=== PATIENT | female | born 1945 | race Two or more races ===

== ENCOUNTER 2020-05-12 16:48 | Inpatient (IN) | payer MEDICARE, MEDICAID ==
[~2020-05-12] VITALS: Ht 154.9 cm; Wt 60.4 kg
[2020-05-12] MEDS ORDERED: LORAZEPAM 2MG/ML CPJ IV ONE (17:45)
[2020-05-12 18:07] LABS: HEMATOCRIT. 28.1 % (36.0-48.0); HEMOGLOBIN. 9.6 g/dL (12.0-16.0); MEAN CORPUSCULAR VOLUME 90.6 fL (81.0-99.0); MEAN PLATELET VOLUME 8.7 fl (7.4-10.4); PLATELET 228 x1000/uL (130-400); RED CELL DISTRIBUTION WIDTH 12.3 % (11.6-14.6)
[2020-05-12 18:15] LABS: CLARITY URINE CLEAR (CLEAR); COLOR URINE DARK YELLOW (YELLOW); KETONES URINE NEGATIVE (NEGATIVE); LEUKOCYTE ESTERASE URINE 1+ (NEGATIVE); NITRITE URINE NEGATIVE (NEGATIVE); OCCULT BLOOD URINE NEGATIVE (NEGATIVE); PH URINE 8.5 (4.5-8.0); PROTEIN URINE NEGATIVE (NEGATIVE); SPECIFIC GRAVITY URINE 1.023 (1.005-1.030); UROBILINOGEN URINE 0.2 E.U./dL (0.2-1.0)
[2020-05-12 18:17] LABS: CHLORIDE 104 mEq/L (98-107)
[2020-05-12 18:21] LABS: PLATELET ESTIMATE NORMAL
[2020-05-12 18:23] LABS: ETHANOL BLOOD < 10 mg/dL; LDL CHOLESTEROL 106 mg/dL (5-100)
[2020-05-12 18:45] LABS: *AMPHETAMINES SCREEN URINE NEGATIVE (NEGATIVE); *BARBITURATES SCREEN URINE NEGATIVE (NEGATIVE); *BENZODIAZEPINES SCREEN URINE NEGATIVE (NEGATIVE); *COCAINE SCREEN URINE NEGATIVE (NEGATIVE); METHADONE URINE SCREEN NEGATIVE (NEGATIVE); OPIATES URINE SCREEN NEGATIVE (NEGATIVE); PHENCYCLIDINE URINE SCREEN NEGATIVE (NEGATIVE)
[2020-05-12 18:47] LABS: CANNABINOID URINE SCREEN NEGATIVE (NEGATIVE)
[2020-05-12] MEDS ORDERED: ASPIRIN 325MG EC TABLET PO NR (19:00)
[2020-05-12] MEDS ORDERED: CEFTRIAXONE 1 G PREMIX 50 ML IV ONE (19:15)
[2020-05-12 19:39] LABS: PROTHROMBIN TIME 10.3 sec (9.6-11.0)
[2020-05-12] MEDS ORDERED: GUAIFENESIN 200MG/10ML SUGAR FREE UDC PO PRN (21:45)
[2020-05-12] MEDS ORDERED: CLONIDINE 0.1MG TABLET PO PRN (21:45)
[2020-05-12] MEDS ORDERED: DOCUSATE SODIUM 100MG CAPSULE PO PRN (21:45)
[2020-05-12] MEDS ORDERED: ONDANSETRON HCL 4MG/2ML INJ IV PRN (21:45)
[2020-05-12] MEDS ORDERED: ACETAMINOPHEN 650MG/20.3ML UDC GT PRN (21:45)
[2020-05-12] MEDS ORDERED: MAGNESIUM/ALUMINUM HYDROXIDE/SIMETHICONE 30ML UDC PO PRN (21:45)
[2020-05-12] MEDS ORDERED: LEVOFLOXACIN 500MG PREMIX 100 ML IV SCH (22:00)
[2020-05-12 22:33] VITALS: BP 115/63
[2020-05-12 22:39] VITALS: BP 115/63
[2020-05-12] MEDS ORDERED: IOHEXOL-350 100 ML BOTTLE ONE (23:11)
[2020-05-13] VITALS (42 sets, daily range): BP systolic 70–123; BP diastolic 24–74
[2020-05-13] MEDS: DEXT 5%/0.45% NACL 1000ML 1,000 ML IV SCH ×2 (00:14→09:34)
[2020-05-13] MEDS: ENOXAPARIN 40MG/0.4ML SYR SUBCUT SCH ×2 (00:18→20:12)
[2020-05-13] MEDS: LEVOFLOXACIN 500MG PREMIX 100 ML IV SCH (00:29)
[2020-05-13 07:08] LABS: CHLORIDE 106 mEq/L (98-107)
[2020-05-13 07:29] LABS: BASOPHILS % 0.4 % (0.0-2.0); EOSINOPHILS % 0.7 % (0.0-5.0); HEMATOCRIT. 24.3 % (36.0-48.0); HEMOGLOBIN. 8.4 g/dL (12.0-16.0); LYMPHOCYTES % 22.3 % (20.0-50.0); MEAN CORPUSCULAR HEMOGLOBIN 31.3 pg (28.0-32.0); MEAN CORPUSCULAR VOLUME 90.9 fL (81.0-99.0); MEAN PLATELET VOLUME 8.9 fl (7.4-10.4); MONOCYTES % 5.9 % (2.0-8.0); NEUTROPHILS % 70.7 % (40.0-76.0); PLATELET 199 x1000/uL (130-400); RED BLOOD CELL COUNT 2.67 mill/uL (4.2-5.4); RED CELL DISTRIBUTION WIDTH 12.3 % (11.6-14.6)
[2020-05-13] MEDS ORDERED: SODIUM CHLORIDE 0.9% 1,000 ML IV SCH (07:30)
[2020-05-13] MEDS ORDERED: PNEUMOCOCCAL 23-VAL P-SAC VAC 0.5 ML IM ONE (09:00)
[2020-05-13] MEDS: MIDODRINE HCL 5MG TABLET PO SCH (20:08)
[2020-05-14] VITALS (38 sets, daily range): BP systolic 51–123; BP diastolic 17–82
[2020-05-14] MEDS: DEXT 5%/0.45% NACL 1000ML 1,000 ML IV SCH ×2 (00:38→15:10)
[2020-05-14] MEDS: LEVOFLOXACIN 500MG PREMIX 100 ML IV SCH (04:40)
[2020-05-14 08:44] LABS: BASOPHILS % 0.4 % (0.0-2.0); EOSINOPHILS % 0.1 % (0.0-5.0); LYMPHOCYTES % 12.2 % (20.0-50.0); MEAN CORPUSCULAR HEMOGLOBIN 30.2 pg (28.0-32.0); MEAN CORPUSCULAR VOLUME 91.5 fL (81.0-99.0); MEAN PLATELET VOLUME 8.7 fl (7.4-10.4); MONOCYTES % 2.8 % (2.0-8.0); NEUTROPHILS % 84.5 % (40.0-76.0); PLATELET 174 x1000/uL (130-400); RED BLOOD CELL COUNT 2.04 mill/uL (4.2-5.4); RED CELL DISTRIBUTION WIDTH 12.6 % (11.6-14.6)
[2020-05-14 08:49] LABS: CHLORIDE 110 mEq/L (98-107)
[2020-05-14 08:50] LABS: HEMATOCRIT. 18.7 % (36.0-48.0); HEMOGLOBIN. 6.2 g/dL (12.0-16.0)
[2020-05-14] MEDS: MIDODRINE HCL 5MG TABLET PO SCH ×3 (09:18→18:02)
[2020-05-14] MEDS: PANTOPRAZOLE SODIUM 40 MG/VIAL IV SCH (12:22)
[2020-05-14 13:21] LABS: FERRITIN 76 ng/mL (10-291)
[2020-05-14 14:24] LABS: FOLIC ACID (FOLATE) SERUM > 20.00 ng/mL (>5.38); VITAMIN B12 SERUM 873 pg/mL (211-911)
[2020-05-14 19:09] LABS: HEMATOCRIT 27.9 % (36.0-48.0); HEMOGLOBIN 9.7 g/dL (12.0-16.0)
[2020-05-14 19:19] LABS: PROTHROMBIN TIME 10.9 sec (9.6-11.0)
[2020-05-14] MEDS: IRON SUCROSE COMPLEX 100 MG/5 ML ML IV SCH (22:07)
[2020-05-15] VITALS (15 sets, daily range): BP systolic 93–134; BP diastolic 39–73
[2020-05-15] MEDS: LEVOFLOXACIN 500MG PREMIX 100 ML IV SCH (01:15)
[2020-05-15] MEDS: DEXT 5%/0.45% NACL 1000ML 1,000 ML IV SCH ×2 (06:57→16:25)
[2020-05-15 06:58] LABS: BASOPHILS % 0.4 % (0.0-2.0); EOSINOPHILS % 0.7 % (0.0-5.0); HEMATOCRIT. 27.2 % (36.0-48.0); HEMOGLOBIN. 9.5 g/dL (12.0-16.0); LYMPHOCYTES % 17.8 % (20.0-50.0); MEAN CORPUSCULAR HEMOGLOBIN 30.3 pg (28.0-32.0); MEAN CORPUSCULAR VOLUME 87.1 fL (81.0-99.0); MEAN PLATELET VOLUME 8.9 fl (7.4-10.4); MONOCYTES % 6.1 % (2.0-8.0); PLATELET 149 x1000/uL (130-400); RED BLOOD CELL COUNT 3.13 mill/uL (4.2-5.4); RED CELL DISTRIBUTION WIDTH 14.3 % (11.6-14.6)
[2020-05-15 07:01] LABS: PROTHROMBIN TIME 10.9 sec (9.6-11.0)
[2020-05-15 07:12] LABS: CHLORIDE 110 mEq/L (98-107)
[2020-05-15] MEDS: MIDODRINE HCL 5MG TABLET PO SCH ×3 (09:00→18:00)
[2020-05-15] MEDS: PANTOPRAZOLE SODIUM 40 MG/VIAL IV SCH (09:50)
[2020-05-15] MEDS: FERROUS SULFATE 325MG TABLET PO SCH ×2 (12:20→17:59)
[2020-05-15] MEDS ORDERED: MIDAZOLAM HCL 5 MG/5 ML VIAL IV PRN (15:57)
[2020-05-15] MEDS ORDERED: MIDAZOLAM HCL 5 MG/5 ML VIAL ONE (15:57)
[2020-05-15] MEDS ORDERED: FENTANYL CITRATE/PF 50MCG/ML 2ML VIAL ONE (15:58)
[2020-05-15] MEDS ORDERED: FENTANYL CITRATE/PF 50MCG/ML 2ML VIAL IV PRN (15:58)
[2020-05-15] MEDS: IRON SUCROSE COMPLEX 100 MG/5 ML ML IV SCH (21:29)
[2020-05-15] MEDS ORDERED: LEVOFLOXACIN 250MG PREMIX 50 ML IV SCH (22:00)
[2020-05-16] VITALS (11 sets, daily range): BP systolic 117–144; BP diastolic 32–82
[2020-05-16] MEDS: DEXT 5%/0.45% NACL 1000ML 1,000 ML IV SCH ×2 (02:29→05:45)
[2020-05-16 10:20] LABS: HEMATOCRIT 31.1 % (36.0-48.0); HEMOGLOBIN 10.7 g/dL (12.0-16.0); MEAN CORPUSCULAR HEMOGLOBIN 30.3 pg (28.0-32.0); MEAN CORPUSCULAR VOLUME 88.1 fL (81.0-99.0); PLATELET 190 x1000/uL (130-400); RED BLOOD CELL COUNT 3.53 mill/uL (4.2-5.4); RED CELL DISTRIBUTION WIDTH 14.2 % (11.6-14.6)
[2020-05-16] MEDS: MIDODRINE HCL 5MG TABLET PO SCH ×2 (10:24→12:48)
[2020-05-16] MEDS: PANTOPRAZOLE SODIUM 40 MG/VIAL IV SCH (10:24)
[2020-05-16] MEDS: FERROUS SULFATE 325MG TABLET PO SCH ×2 (10:24→12:48)
[2020-05-16 10:30] LABS: CHLORIDE 111 mEq/L (98-107)
[2020-05-16] MEDS ORDERED: SUCRALFATE 1 G/10 ML UDC PO SCH (13:00)
[2020-05-16] MEDS ORDERED: LEVOFLOXACIN 250MG TABLET PO SCH (19:00)
[2020-05-16] MEDS ORDERED: ATORVASTATIN CALCIUM 10MG TABLET PO SCH (21:00)
== END 2020-05-16 15:50 | disposition home health service (06) | DRG 871 ==
LOC: ER 16:48 → 3WST 19:09 → EDBEDREQ 19:11 → ENRESERV 20:46
PROVIDERS: ADMIT Hospitalist; ATTEND Hospitalist
PROC: 30233N1 Transfusion of Nonautologous Red Blood Cells into Peripheral Vein, Percutaneous Approach (ICD-10-PCS; principal; 2020-05-14)
PROC: 0DB78ZX Excision of Stomach, Pylorus, Via Natural or Artificial Opening Endoscopic, Diagnostic (ICD-10-PCS; 2020-05-15)
DX: A41.9 Sepsis, unspecified organism (principal); G93.41 Metabolic encephalopathy; K29.71 Gastritis, unspecified, with bleeding; K25.4 Chronic or unspecified gastric ulcer with hemorrhage; N39.0 Urinary tract infection, site not specified; E44.1 Mild protein-calorie malnutrition; D62 Acute posthemorrhagic anemia; I95.1 Orthostatic hypotension; E78.5 Hyperlipidemia, unspecified; E86.0 Dehydration; F41.0 Panic disorder [episodic paroxysmal anxiety]; K44.9 Diaphragmatic hernia without obstruction or gangrene; Z20.822 Contact with and (suspected) exposure to COVID-19; D50.9 Iron deficiency anemia, unspecified; Z68.25 Body mass index [BMI] 25.0-25.9, adult
CPT/HCPCS: 36415; 70496; 70498; 70551; 71045; 80048; 80053; 80305; 80320; 81003; 82270; 82607; 82728; 82746; 82962; 83540; 83550; 83721; 84443; 84484; 85014; 85018; 85025; 85027; 85044; 85049; 85384; 86850; 86900; 86920; 87426; 88305; 88313; 90732; 93005; 93970; 97162; 97530; 99291; A6261; C9113; J0696; J1650; J1956; J2060; J2250; J3010; P9016; Q9967; G0480

== ENCOUNTER 2021-06-28 07:38 | Emergency (ER) | payer MEDICARE, MEDICAID ==
[~2021-06-28] VITALS: Ht 157.5 cm; Wt 51.0 kg
[2021-06-28 07:45] VITALS: BP 106/41
[2021-06-28 08:32] LABS: BASOPHILS % 0.3 % (0.0-2.0); EOSINOPHILS % 1.9 % (0.0-5.0); HEMATOCRIT. 39.9 % (36.0-48.0); HEMOGLOBIN. 13.7 g/dL (12.0-16.0); MEAN CORPUSCULAR HEMOGLOBIN 29.6 pg (28.0-32.0); MEAN PLATELET VOLUME 8.1 fl (7.4-10.4); MONOCYTES % 4.8 % (2.0-8.0); PLATELET 307 x1000/uL (130-400); RED BLOOD CELL COUNT 4.63 mill/uL (4.2-5.4); RED CELL DISTRIBUTION WIDTH 14.3 % (11.6-14.6)
[2021-06-28 08:39] LABS: CLARITY URINE CLOUDY (CLEAR); COLOR URINE DARK YELLOW (YELLOW); KETONES URINE 1+ (NEGATIVE); LEUKOCYTE ESTERASE URINE 1+ (NEGATIVE); NITRITE URINE NEGATIVE (NEGATIVE); OCCULT BLOOD URINE NEGATIVE (NEGATIVE); PH URINE 5.5 (4.5-8.0); PROTEIN URINE 1+ (NEGATIVE); SPECIFIC GRAVITY URINE 1.028 (1.005-1.030)
[2021-06-28] MEDS ORDERED: DICYCLOMINE 10 MG/5 ML ORAL SYR PO STA (09:04)
[2021-06-28] MEDS ORDERED: MAGNESIUM/ALUMINUM HYDROXIDE/SIMETHICONE 30ML UDC PO STA (09:04)
[2021-06-28] MEDS ORDERED: VISCOUS LIDOCAINE 2% 15 ML UDC PO STA (09:04)
[2021-06-28 10:01] LABS: CHLORIDE 106 mEq/L (98-107)
[2021-06-28] MEDS ORDERED: NITR100C PO (10:12)
[2021-06-28] MEDS ORDERED: POLY17PO3 MT (10:12)
[2021-06-28] MEDS ORDERED: TOPUD PO (10:12)
== END 2021-06-28 10:58 | disposition home or self-care (01) ==
LOC: ER 07:38
DX: N39.0 Urinary tract infection, site not specified (principal); K59.00 Constipation, unspecified; Z98.890 Other specified postprocedural states
CPT/HCPCS: 36415; 74176; 80053; 81003; 85025; 99284

== ENCOUNTER 2021-07-09 07:41 | Emergency (ER) | payer MEDICARE, MEDICAID ==
[~2021-07-09] VITALS: Ht 165.1 cm; Wt 66.0 kg
[~2021-07-09 07:41] MED LIST: NITR100C PO; POLY17PO3 MT; TOPUD PO
[2021-07-09] MEDS ORDERED: MAGNESIUM/ALUMINUM HYDROXIDE/SIMETHICONE 30ML UDC PO STA (11:18)
[2021-07-09] MEDS ORDERED: FAMOTIDINE 20MG/2ML VIAL IV STA (11:18)
[2021-07-09] MEDS ORDERED: VISCOUS LIDOCAINE 2% 15 ML UDC PO STA (11:18)
[2021-07-09] MEDS ORDERED: DICYCLOMINE 10 MG/5 ML ORAL SYR PO STA (11:18)
[2021-07-09 11:28] LABS: BASOPHILS % 0.3 % (0.0-2.0); EOSINOPHILS % 0.5 % (0.0-5.0); HEMATOCRIT. 36.2 % (36.0-48.0); HEMOGLOBIN. 12.7 g/dL (12.0-16.0); LYMPHOCYTES % 17.6 % (20.0-50.0); MEAN CORPUSCULAR HEMOGLOBIN 30.4 pg (28.0-32.0); MEAN CORPUSCULAR VOLUME 86.6 fL (81.0-99.0); MEAN PLATELET VOLUME 8.1 fl (7.4-10.4); MONOCYTES % 4.5 % (2.0-8.0); NEUTROPHILS % 77.1 % (40.0-76.0); PLATELET 275 x1000/uL (130-400); RED BLOOD CELL COUNT 4.18 mill/uL (4.2-5.4); RED CELL DISTRIBUTION WIDTH 13.6 % (11.6-14.6)
[2021-07-09 11:35] LABS: CHLORIDE 104 mEq/L (98-107)
[2021-07-09] MEDS ORDERED: OMEP20TA2 PO (12:28)
[2021-07-09] MEDS ORDERED: MAG-55 PO (12:29)
[2021-07-09 13:30] VITALS: BP 121/43
[2021-07-09 13:57] LABS: CLARITY URINE CLOUDY (CLEAR); COLOR URINE YELLOW (YELLOW); KETONES URINE 1+ (NEGATIVE); LEUKOCYTE ESTERASE URINE 1+ (NEGATIVE); NITRITE URINE NEGATIVE (NEGATIVE); OCCULT BLOOD URINE NEGATIVE (NEGATIVE); PROTEIN URINE TRACE (NEGATIVE); SPECIFIC GRAVITY URINE 1.026 (1.005-1.030); UROBILINOGEN URINE 0.2 E.U./dL (0.2-1.0)
== END 2021-07-09 13:30 | disposition home or self-care (01) ==
LOC: ER 07:41
DX: K29.70 Gastritis, unspecified, without bleeding (principal)
CPT/HCPCS: 36415; 74176; 80053; 81003; 83690; 85025; 96374; 99284; J3490